=== PATIENT | male | born 1955 | race Caucasian/White ===

== ENCOUNTER → 2017-12-02 | Outpatient (CLI) | payer BC ==
--- NOTE | 2017-11-20 12:17 | MH ---
cc: [facility], NEFTALI VELAZQUEZ DATE OF ADMISSION 12/02/2017 ADMISSION DIAGNOSIS Cataract right eye. HISTORY OF PRESENT ILLNESS This 62-year-old white male is coming through [facility] for the purpose of a lens extraction of the right eye with intraocular lens implant under local anesthesia. He has noted decreasing visual acuity interfering with his daily activities and elected to have the above procedure. His best-corrected visual acuity is hand motions in the right eye and 20/200 in the left eye. PAST MEDICAL HISTORY The patient has a history of arthritis and vascular disease. PAST SURGICAL HISTORY His past surgical history includes vascular surgery on his legs and hip surgery. MEDICATIONS His daily medications include: 1. Meloxicam. 2. Cyclobenzaprine. 3. Plavix. 4. Simvastatin. 5. Baby aspirin. ALLERGIES He has known allergies. SOCIAL HISTORY He is a zyk-xovj-nyt-day smoker for 50 years. He drinks two beers after work each day. FAMILY HISTORY Positive for mother and father with cataract. REVIEW OF SYSTEMS HEAD: Patient denies severe headaches, dizziness or recent head injury. EARS: Patient denies hearing loss, ear pain, discharge or ringing in the ears. NOSE: Patient denies nasal discharge, obstruction or frequent colds. MOUTH AND THROAT: Patient denies soreness of the mouth or tongue, bleeding gums, trouble swallowing, changes in voice or sore throat. NECK: The patient has some arthritis which affects his neck. CARDIOPULMONARY SYSTEM: Patient denies shortness of breath, orthopnea, chronic cough, sputum production, hemoptysis, chest pain, wheezing, palpitations or light-headedness. GI SYSTEM: Patient denies poor appetite, nausea, vomiting, abdominal pain, ulcers, hemorrhoids or change in bowel habits. SYSTEM: The patient denies urinary frequency, dysuria, change in urine color. NERVOUS SYSTEM: Patient denies convulsions, vertigo, stroke, numbness or weakness. PHYSICAL EXAMINATION VITAL SIGNS: Blood pressure 132/78, pulse 88, respirations 16. HEAD: Normocephalic, atraumatic. NOSE: Without rhinorrhea. THROAT: Clear. NECK: Supple. CHEST: Clear. HEART: Regular rhythm. ABDOMEN: Without tenderness. EXTREMITIES: Without edema. NEUROLOGIC: Within normal limits. MENTAL STATUS: Within normal limits. EYE EXAM: The patient's best-corrected visual acuity is hand motions only in the right eye and 20/200 in the left, and J4 at near. Visual witt are full to confrontation testing. Extraocular muscle exam reveals full versions with esophoria at distance and near. Pupils are 3 mm, equal, round, and reactive to light without afferent defect. Anterior segment examination reveals nuclear sclerotic and posterior subcapsular cataract, greater in the right eye than the left. Intraocular pressure is 18 in each eye by applanation tonometry. Dilated fundus exam revealed sharp disks with cup-to-disk ratio of 0.35 bilaterally. The macula is clear and the background is within normal limits. IMPRESSION Dense cataracts, right eye greater than left. PLAN Lens extraction of the right eye with intraocular lens implant under local anesthesia through [facility]. Iris retractors will probably be used in this patient who does not dilate well. The patient has been cleared medically. He has been counseled as to the risks, benefits and alternatives and elected to proceed. I feel that cataract surgery will improve the quality of life and activities of daily living in this patient. MD HE Olson/PRESTON /11:31 AM /11:44 AM
[~2017-12-02] VITALS: Ht 177.8 cm; Wt 75.0 kg
[~2017-12-02] MED LIST: ACETYLCHOLINE CHL OPHT SOLN 1:100 2 ML VIAL ONE; ASPI81TA23 PO; CHLORHEXIDINE GLUCONATE 2 % 1 PACK (2 CLOTHS) TOPICAL PRN; CYCL10TA PO; EPINEPHrine HCL PF/SF (1:1000) 1 MG/ML AMP I-OCULAR ONE; HYALURONIDASE/LIDOCAINE/BUPIVACAINE 5 ML SYR RIGHT EYE ONE; LACTATED RINGER'S 1000 ML IV PRN; MELO15TA20 PO; METOPROLOL TARTRATE 25 MG TAB PO PRN; PILOCARPINE HCL 2% OPHT SOLN 15 ML BTL ONE; PLAV75TA29 PO; POVIDONE IODINE 5% (ANTISEPSIS KIT) 4 APPLICATIONS EACH NARE PRN; PROPARACAINE HCL 0.5% OPHT SOLN 15 ML BTL RIGHT EYE ONE; PROPOFOL 200 MG/20 ML AMP ONE; SIMV10TA PO; SODIUM CHLORID 0.9% 500 ML IV PRN; TOBRAMYCIN/DEXAMETHASONE OPTH OINT 3.5 GM TUBE ONE; VISCOAT OPHT IRRIG SOLN 0.75 ML SYRINGE ONE; acetaZOLAMIDE SEQUELS 500 MG SUSTAINED RELEASE CAP ONE
[2017-12-02 09:02] VITALS: PULSE 104
[2017-12-02] MEDS: GATIFLOXACIN 0.5% OPHT SOLN 2.5 ML BTL RIGHT EYE SCH ×4 (09:05→09:14)
[2017-12-02] MEDS: PHENYLEPHRINE HCL 2.5% OPTH SOLN 2 ML BTL RIGHT EYE SCH ×4 (09:05→09:14)
[2017-12-02] MEDS: TROPICAMIDE 1% OPHT SOLN 15 ML BTL RIGHT EYE SCH ×4 (09:05→09:14)
[2017-12-02] MEDS: CYCLOPENTOLATE HCL 1% OPHT SOLN 2 ML BTL RIGHT EYE SCH ×4 (09:05→09:14)
[2017-12-02] MEDS: DICLOFENAC SOD 0.1% OPHT SOLN 2.5 ML BTL RIGHT EYE SCH ×4 (09:05→09:14)
[2017-12-02 09:37] VITALS: PULSE 90
[2017-12-02 13:35] VITALS: BP 113/72; PULSE 85; RESP 16; TEMP 97.5; O2SAT 98
--- NOTE | 2017-12-03 11:23 | MP ---
cc: NEFTALI MCINTOSH M.D. DATE OF SURGERY 12/02/2017 PREOPERATIVE DIAGNOSIS Cataract, right eye. POSTOPERATIVE DIAGNOSIS Cataract, right eye. OPERATION Extracapsular cataract extraction with anterior chamber intraocular lens implant by phacoemulsification with anterior vitrectomy, right eye. SURGEON Neftali Mcintosh M.D. ANESTHESIA Local. COMPLICATIONS Zonular dehiscence. INDICATIONS See history and physical previously dictated. OPERATIVE PROCEDURE The patient had adequate retrobulbar and eyelid blocks administered in the holding area and was brought to the operating room. The right eye was prepped and draped in the usual sterile ophthalmic manner. A lid speculum was inserted in the right eye. A 4-0 silk bridle suture was placed through the conjunctiva near the superior rectus muscle and it was tagged to the drape. A fornix-based conjunctival flap was prepared spanning approximately 5 mm in width. Hemostasis was obtained with wet-field cautery. A 3.5 mm groove was made 1 mm from the limbus and dissected up to the limbus in the form of a scleral pocket incision. A stab incision was then made at the 2 o'clock position. Viscoelastic was injected into the anterior chamber. In order to maintain an adequately dilated pupil, it was elected to use iris retractors in this case. Stab incisions were made at the 1 o'clock, 3 o'clock, 5 o'clock, 8 o'clock and 10 o'clock positions. Iris retractors were then inserted through the stab incisions in the peripheral cornea and positioned to enlarge the size of the pupil. The anterior chamber was entered with a 2.75 mm keratome through the scleral pocket incision. A 360 degree continuous curvilinear capsulorrhexis was then performed. Hydrodissection was utilized to divide the nucleus into inner and outer components and to separate the cortex from the capsule. Phacoemulsification was then utilized to remove the nucleus. The cortex was removed with the irrigation-aspiration handpiece. During this step of the procedure the capsule also cane to the aspiration port with the cortex as the zonules had dehisced inferiorly. After removal of the capsule and cortex an anterior vitrectomy was performed. A 23-gauge MVR blade was used to make the pars plana incision 3.5 mm posterior to the limbus at the 11 o'clock position. Following a two-port anterior vitrectomy through the pars plana and using the sideport for the irrigation a peripheral iridectomy was then performed superiorly. The pupil was then constricted. The pars plana incision was closed with one interrupted 7-0 Vicryl suture. The cataract wound was enlarged to 6 mm with a 6 mm keratome blade. Additional viscoelastic was placed in the anterior chamber and then the anterior chamber lens was inserted. The lens utilized was a [employer] model [id number] with a power of +16.5 diopters. After the anterior chamber lens was in place it was rotated somewhat horizontally to ensure its position and to avoid the peripheral iridectomy. The cataract wound was then closed with four interrupted 10-0 nylon sutures. The sutures were trimmed close to the knots and the knots were buried on the corneal side. The wound was checked for leaks and there were none. The 4-0 silk bridle suture was removed. The conjunctival flap was brought down over the wound and secured with cautery. Pilocarpine 2% eye drops were instilled topically. The lid speculum was removed. TobraDex ophthalmic ointment was instilled in the inferior cul-de-sac. The eye was double-patched and shielded. The patient tolerated the procedure well and left the operating room in satisfactory condition. MD HE Olson/PRESTON /4:29 PM /11:08 AM
== END ==
LOC: PHSDC 08:09
PROVIDERS: ATTEND Ophthalmology
DX: H25.811 Combined forms of age-related cataract, right eye (principal); H57.09 Other anomalies of pupillary function; I99.9 Unspecified disorder of circulatory system; M19.90 Unspecified osteoarthritis, unspecified site; Z87.891 Personal history of nicotine dependence
CPT/HCPCS: 00142; 66982; 67005; J0171; J7040; V2630

== ENCOUNTER 2018-03-04 00:49 | Inpatient (IN) | payer BC, OTHER ==
[~2018-03-04] VITALS: Ht 177.8 cm; Wt 80.8 kg
[2018-03-04] VITALS (12 sets, daily range): BP systolic 101–177; BP diastolic 61–103; PULSE 95–125; RESP 16–20; TEMP 97.5–98.7; O2SAT 91–99
[~2018-03-04 00:49] MED LIST changes: -ACETYLCHOLINE CHL OPHT SOLN 1:100 2 ML VIAL ONE; -CHLORHEXIDINE GLUCONATE 2 % 1 PACK (2 CLOTHS) TOPICAL PRN; -EPINEPHrine HCL PF/SF (1:1000) 1 MG/ML AMP I-OCULAR ONE; -HYALURONIDASE/LIDOCAINE/BUPIVACAINE 5 ML SYR RIGHT EYE ONE; -LACTATED RINGER'S 1000 ML IV PRN; -METOPROLOL TARTRATE 25 MG TAB PO PRN; -PILOCARPINE HCL 2% OPHT SOLN 15 ML BTL ONE; -POVIDONE IODINE 5% (ANTISEPSIS KIT) 4 APPLICATIONS EACH NARE PRN; -PROPARACAINE HCL 0.5% OPHT SOLN 15 ML BTL RIGHT EYE ONE; -PROPOFOL 200 MG/20 ML AMP ONE; -SODIUM CHLORID 0.9% 500 ML IV PRN; -TOBRAMYCIN/DEXAMETHASONE OPTH OINT 3.5 GM TUBE ONE; -VISCOAT OPHT IRRIG SOLN 0.75 ML SYRINGE ONE; -acetaZOLAMIDE SEQUELS 500 MG SUSTAINED RELEASE CAP ONE
[2018-03-04] MEDS ORDERED: LACTATED RINGER'S 1000 ML INJ 1,000 ML IV SCH ×2 (01:19→05:27)
[2018-03-04] MEDS ORDERED: ceFAZolin 2 GM PREMIX 50 ML IV STA (01:25)
[2018-03-04] MEDS ORDERED: ceFAZolin 2 GM PREMIX 100 ML IV ONE (01:30)
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
[2018-03-04 01:43] LABS: AUTOMATED NEUTROPHIL # 13.4 TH/MM3 (1.8-7.7); BASOPHIL # 0.6 TH/MM3 (0-0.2); BASOPHIL % 3.6 % (0.0-2.0); EOSINOPHIL # 0.1 TH/MM3 (0-0.4); EOSINOPHIL % 0.4 % (0.0-4.0); HEMATOCRIT 45.3 % (39.0-51.0); HEMOGLOBIN 15.7 GM/DL (13.0-17.0); LYMPH % 8.5 % (9.0-44.0); LYMPHOCYTE # 1.4 TH/MM3 (1.0-4.8); MEAN CELL VOLUME 90.2 FL (80.0-100.0); MEAN CORPUSCULAR HEMOGLOBIN 31.2 PG (27.0-34.0); MEAN CORPUSCULAR HGB CONC 34.6 % (32.0-36.0); MEAN PLATELET VOLUME 9.1 FL (7.0-11.0); MONO % 8.5 % (0.0-8.0); MONOCYTE # 1.4 TH/MM3 (0-0.9); PLATELET COUNT 182 TH/MM3 (150-450); RED BLOOD COUNT 5.02 MIL/MM3 (4.50-5.90); RED CELL DISTRIBUTION WIDTH 14.7 % (11.6-17.2); WHITE BLOOD COUNT 16.9 TH/MM3 (4.0-11.0)
[2018-03-04] MEDS: SODIUM CHLORIDE 0.9% FLUSH 10 ML FLUSH IVF PRN ×3 (01:44→02:32)
[2018-03-04] MEDS ORDERED: MORPHINE SULFATE 4 MG/ML INJ IV PUSH ONE ×2 (01:45→02:30)
[2018-03-04] MEDS ORDERED: ONDANSETRON HCL 4 MG/2 ML VIAL IV PUSH ONE (01:45)
[2018-03-04 01:46] LABS: CALCIUM 9.2 MG/DL (8.5-10.1)
[2018-03-04 01:47] LABS: BICARBONATE 21.5 MEQ/L (21.0-32.0)
[2018-03-04 01:49] LABS: PROTHROMBIN TIME - PATIENT 10.6 SEC (9.8-11.6)
[2018-03-04 01:50] LABS: CREATININE 0.86 MG/DL (0.60-1.30)
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
[2018-03-04] MEDS ORDERED: IOHEXOL 350 MG/ML 10 ML VIAL (for RAD DIAG) IVCONTRAST ONE (02:43)
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
[2018-03-04 04:34] LABS: BILIRUBIN, URINE NEG (NEG); BLOOD, URINE NEG (NEG); GLUCOSE,URINE NEG (NEG); KETONE, URINE TRACE mg/dL (NEG); NITRITE,URINE NEG (NEG); URINE COLOR YELLOW (YELLW/STRAW); URINE LEUKOCYTE ESTERASE NEG (NEG)
[2018-03-04 04:37] LABS: RBC, URINE 0-3 /hpf (0-3); SQUAMOUS EPITHELIAL CELL URINE 0-5 /hpf (0-5); WBC, URINE 0-2 /hpf (0-5)
[2018-03-04] MEDS ORDERED: CHLORHEXIDINE GLUCONATE 2 % 1 PACK (2 CLOTHS) TOP PRN (05:30)
[2018-03-04] MEDS ORDERED: NURSING INFORMATION XX SCH (05:30)
[2018-03-04] MEDS ORDERED: ONDANSETRON HCL 4 MG/2 ML VIAL IV PUSH PRN (05:30)
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
[2018-03-04] MEDS ORDERED: HYDROmorphone HCL PF 0.5 MG/0.5 ML SYRINGE IV PUSH PRN ×2 (05:45→13:15)
[2018-03-04] MEDS: HYDROmorphone HCL PF 0.5 MG/0.5 ML SYRINGE IV PUSH PRN ×3 (05:58→12:25)
[2018-03-04] MEDS: ACETAMINOPHEN 1000 MG/100 ML 100 ML IV SCH ×4 (06:15→23:56)
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
[2018-03-04] MEDS: DOCUSATE SODIUM 100 MG CAP PO SCH ×2 (09:08→21:50)
[2018-03-04] MEDS: CYCLOBENZAPRINE HCL 10 MG TAB PO SCH ×2 (09:18→21:50)
[2018-03-04] MEDS: FAMOTIDINE 20 MG TAB PO SCH ×2 (09:18→21:50)
[2018-03-04] MEDS: MAGNESIUM HYDROXIDE SUSP 30 ML CUP PO SCH ×2 (09:18→21:00)
--- NOTE | 2018-03-04 10:56 | EKG ---
Date Performed: 03/04/2018 Time Performed: 01:44:22 PTAGE: 62 years EKG: SINUS TACHYCARDIA ABNORMAL RHYTHM ECG PREVIOUS TRACING : 04/23/1997 10.19 DOCTOR: Miller Seo Interpretating Date/Time 03/04/2018 10:55:45
[2018-03-04] MEDS ORDERED: LIDOCAINE HCL 5% PATCH T-DERMAL SCH (13:00)
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
[2018-03-04] MEDS: LIDOCAINE HCL 5% PATCH T-DERMAL SCH (14:59)
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
[2018-03-04] MEDS ORDERED: DOCU1CAP39 PO (18:39)
[2018-03-04] MEDS ORDERED: MAGN30S PO (18:39)
[2018-03-04] MEDS ORDERED: PRAVASTATIN SOD 20 MG TAB PO SCH (21:00)
[2018-03-04] MEDS: REMOVE OLD PATCH T-DERMAL SCH (21:00)
[2018-03-05] VITALS: BP 111/71; PULSE 94; RESP 20; TEMP 98.4; O2SAT 93
[2018-03-05 04:00] VITALS: BP 104/60; PULSE 87; RESP 20; TEMP 98.1; O2SAT 92
[2018-03-05] MEDS ORDERED: CHLORHEXIDINE GLUCONATE 2 % 1 PACK (2 CLOTHS) TOP SCH (04:00)
[2018-03-05 04:40] LABS: AUTOMATED NEUTROPHIL # 3.9 TH/MM3 (1.8-7.7); BASOPHIL # 0.1 TH/MM3 (0-0.2); BASOPHIL % 1.9 % (0.0-2.0); EOSINOPHIL # 0.2 TH/MM3 (0-0.4); EOSINOPHIL % 2.9 % (0.0-4.0); HEMATOCRIT 40.2 % (39.0-51.0); HEMOGLOBIN 13.8 GM/DL (13.0-17.0); MEAN CELL VOLUME 91.2 FL (80.0-100.0); MEAN CORPUSCULAR HEMOGLOBIN 31.3 PG (27.0-34.0); MEAN CORPUSCULAR HGB CONC 34.3 % (32.0-36.0); MEAN PLATELET VOLUME 8.3 FL (7.0-11.0); MONO % 13.5 % (0.0-8.0); NEUT % 53.7 % (16.0-70.0); PLATELET COUNT 143 TH/MM3 (150-450); RED BLOOD COUNT 4.41 MIL/MM3 (4.50-5.90); RED CELL DISTRIBUTION WIDTH 14.7 % (11.6-17.2); WHITE BLOOD COUNT 7.3 TH/MM3 (4.0-11.0)
[2018-03-05 05:09] LABS: BICARBONATE 28.5 MEQ/L (21.0-32.0); CALCIUM 8.4 MG/DL (8.5-10.1); CREATININE 0.88 MG/DL (0.60-1.30)
--- NOTE | 2018-03-05 06:14 | RADRPT ---
EXAM DATE/TIME: 03/05/2018 05:06 [place] COMPARISON: No previous studies available for comparison. INDICATIONS : Shortness of breath. MEDICAL HISTORY : None. SURGICAL HISTORY : None. ENCOUNTER: Subsequent ACUITY: 2 days PAIN SCORE: 3/10 LOCATION: Bilateral chest FINDINGS: A single view of the chest demonstrates some atelectasis in both lung bases. Mild scarring in the api yolande.. The cardiomediastinal contours are unremarkable. Osseous structures are intact. CONCLUSION: Bilateral lower lobe atelectasis. Mild biapical scarring. Ununited left clavicular fracture. Miller Ehcevarria MD on March 05, 2018 at 6:12 Board Certified Radiologist. This report was verified electronically.
[2018-03-05 08:00] VITALS: BP 115/69; PULSE 89; RESP 18; TEMP 98.1; O2SAT 90
[2018-03-05] MEDS: DOCUSATE SODIUM 100 MG CAP PO SCH (08:19)
[2018-03-05] MEDS: CYCLOBENZAPRINE HCL 10 MG TAB PO SCH (08:19)
[2018-03-05] MEDS: FAMOTIDINE 20 MG TAB PO SCH (08:19)
[2018-03-05] MEDS: MAGNESIUM HYDROXIDE SUSP 30 ML CUP PO SCH (08:20)
[2018-03-05] MEDS: REMOVE OLD PATCH T-DERMAL SCH (08:20)
[2018-03-05] MEDS: LIDOCAINE HCL 5% PATCH T-DERMAL SCH (08:21)
[2018-03-05] MEDS ORDERED: PNEUMOCOCCAL POLYVALENT INJ 25 MCG/0.5 ML SYR IM ONE (10:00)
[2018-03-05] MEDS ORDERED: PERC5TAB12 PO (11:26)
[2018-03-05] MEDS ORDERED: LIDO1ADH4 T-DERMAL (11:26)
[2018-03-05 12:00] VITALS: BP 116/55; PULSE 110; RESP 18; TEMP 99; O2SAT 93
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
[2018-03-05 12:29] VITALS: RESP 17
== END 2018-03-05 15:16 | disposition home health service (06) | DRG 563 ==
LOC: PHED 00:49 → NEDA 05:34 → N06B 07:26
PROVIDERS: ADMIT Surgery Trauma Surgery; ATTEND Surgery Trauma Surgery
DX: S42.032A Displaced fracture of lateral end of left clavicle, initial encounter for closed fracture (principal); L02.11 Cutaneous abscess of neck; I10 Essential (primary) hypertension; S22.32XA Fracture of one rib, left side, initial encounter for closed fracture; L02.212 Cutaneous abscess of back [any part, except buttock and flank]; J44.9 Chronic obstructive pulmonary disease, unspecified; S80.212A Abrasion, left knee, initial encounter; I73.9 Peripheral vascular disease, unspecified; E78.5 Hyperlipidemia, unspecified; M19.90 Unspecified osteoarthritis, unspecified site; S90.512A Abrasion, left ankle, initial encounter; F17.200 Nicotine dependence, unspecified, uncomplicated; V23.4XXA Motorcycle driver injured in collision with car, pick-up truck or van in traffic accident, initial encounter; Y92.414 Local residential or business street as the place of occurrence of the external cause; Z23 Encounter for immunization; Z95.820 Peripheral vascular angioplasty status with implants and grafts
CPT/HCPCS: 70450; 71045; 71046; 71260; 72125; 73000; 74177; 80048; 80307; 81001; 85025; 85610; 85730; 86850; 86900; 86901; 90732; 93005; 94150; 94667; 96365; 96375; J0131; J0690; J1170; J2270; J2405; J7120; Q9967